=== PATIENT | female | born 1985 | race Caucasian/White ===

== ENCOUNTER 2018-11-04 08:43 | Day surgery (SDC) | payer BC ==
[~2018-11-04] VITALS: Ht 162.6 cm; Wt 109.3 kg
[~2018-11-04 08:43] MED LIST: BUPR150T73 PO
[2018-11-04 09:12] VITALS: BP 143/97
[2018-11-04] MEDS ORDERED: LACTATED RINGERS 1,000 ML IV SCH (09:16)
[2018-11-04] MEDS ORDERED: MELATONIN PO (09:20)
[2018-11-04] MEDS ORDERED: GABAPENTIN 300 MG CAPSULE PO ONE (09:30)
[2018-11-04] MEDS ORDERED: ONDANSETRON ODT 8 MG PO ONE (09:30)
[2018-11-04] MEDS ORDERED: SCOPOLAMINE PATCH, 1.5MG PATCH.TD72 TD ONE (09:30)
[2018-11-04] MEDS ORDERED: ACETAMINOPHEN 500 MG TABLET PO ONE (09:30)
[2018-11-04] MEDS ORDERED: APREPITANT 40 MG CAPSULE PO ONE (09:30)
[2018-11-04] MEDS ORDERED: OxyconTIN ER 20 MG TAB.ER PO ONE (09:30)
[2018-11-04] MEDS ORDERED: MIDAZOLAM 1 MG/ML, 2ML ONE (09:34)
[2018-11-04] MEDS ORDERED: FENTANYL PF 250 MCG/5ML ONE (09:35)
[2018-11-04 09:44] LABS: HCG UR SG 1.014 (1.003-1.030)
[2018-11-04] MEDS ORDERED: BUPIVACAINE 0.25% ONE (10:28)
[2018-11-04] MEDS ORDERED: EPINEPHRINE 1 MG/ML, 1ML ONE (10:28)
[2018-11-04] MEDS ORDERED: PROPOFOL 50 ML ONE ×3 (10:54→12:35)
[2018-11-04] MEDS ORDERED: LABETALOL 5MG/ML, 20ML IV PRN (11:30)
[2018-11-04] MEDS ORDERED: HYDROmorphone 2 MG/ML, 1ML IVPush PRN (11:30)
[2018-11-04] MEDS ORDERED: ONDANSETRON 2MG/ML, 2ML IV PRN (11:30)
[2018-11-04] MEDS ORDERED: ALBUTEROL/IPRATROPIUM 2.5MG/0.5MG, 3 ML NPPB PRN (11:30)
[2018-11-04] MEDS ORDERED: MEPERIDINE/PF 25MG/0.5ML IVPush PRN (11:30)
[2018-11-04] MEDS ORDERED: PROMETHAZINE 25 MG/ML, 1ML IV PRN (11:30)
[2018-11-04] MEDS ORDERED: MIDAZOLAM 1 MG/ML, 2ML IV PRN (11:30)
[2018-11-04] MEDS ORDERED: BUPIVACAINE/PF 0.5% ONE (11:33)
[2018-11-04] MEDS ORDERED: KETOROLAC 30 MG/1 ML ONE (12:23)
[2018-11-04] MEDS ORDERED: CEFAZOLIN 1,000 MG ONE (13:23)
[2018-11-04] MEDS ORDERED: ONDANSETRON 2MG/ML, 2ML ONE (13:23)
[2018-11-04] MEDS ORDERED: PROPOFOL 10 MG/ML, 20ML ONE (13:23)
[2018-11-04] MEDS ORDERED: DEXAMETHASONE 4 MG/ML, 1ML ONE (13:23)
[2018-11-04] MEDS ORDERED: FENTANYL PF 100 MCG/2ML ONE (13:44)
[2018-11-04] MEDS: FENTANYL PF 100 MCG/2ML IV PRN ×2 (13:46→13:56)
[2018-11-04] MEDS ORDERED: OXYcodone 5 MG/5 ML ORAL.SOL UDC ONE (13:57)
[2018-11-04] MEDS: OXYcodone 5 MG/5 ML ORAL.SOL UDC PO PRN ×2 (13:59→15:43)
[2018-11-04] MEDS ORDERED: HYDROmorphone 2 MG/ML, 1ML ONE (14:08)
[2018-11-04] MEDS ORDERED: APAP/CODEINE 300/30MG TABLET PO PRN (16:00)
[2018-11-04] MEDS ORDERED: ONDANSETRON 2MG/ML, 2ML IVPush PRN (16:00)
[2018-11-04] MEDS ORDERED: PROMETHAZINE 25 MG/ML, 1ML IM PRN (16:00)
[2018-11-04] MEDS ORDERED: OXYcodone/APAP 5/325MG TABLET PO PRN (16:00)
[2018-11-04] MEDS ORDERED: KETOROLAC 30 MG/1 ML IVPush SCH (16:00)
[2018-11-04] MEDS ORDERED: morphine SULFATE 10 MG/ML, 1ML IVPush PRN (16:00)
== END 2018-11-04 19:02 | disposition home or self-care (01) ==
LOC: OUT 08:43
PROVIDERS: ATTEND Orthopaedic Surgery
DX: M23.52 Chronic instability of knee, left knee (principal); M22.42 Chondromalacia patellae, left knee; E66.01 Morbid (severe) obesity due to excess calories; Z68.41 Body mass index [BMI] 40.0-44.9, adult; Z88.1 Allergy status to other antibiotic agents; Z88.8 Allergy status to other drugs, medicaments and biological substances
CPT/HCPCS: 27420; 29877; 64447; 73560; 76000; 81025; C1713; J0171; J0690; J1100; J1170; J1885; J2250; J2270; J2405; J2550; J2704; J3010; J3490; J7120; J8501; Q0162

== ENCOUNTER 2019-09-13 16:12 | Emergency (ER) | payer BC, OTHER ==
[~2019-09-13] VITALS: Ht 162.6 cm; Wt 106.2 kg
[~2019-09-13 16:12] MED LIST changes: +MELATONIN PO; +TRAM50TA2 PO
[2019-09-13 16:16] VITALS: BP 156/104
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
[2019-09-13] MEDS ORDERED: KETOROLAC 30 MG/1 ML IM ONE (17:00)
[2019-09-13] MEDS ORDERED: KETOROLAC 30 MG/1 ML ONE (17:06)
--- NOTE | 2019-09-13 17:38 | NUR ---
YVONNE HARMON AT BEDSIDE FOR RECHECK, DISCUSSING DISCHARGE POC. AWAITING CHART AND DISCHARGE PAPERS
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
== END 2019-09-13 18:00 ==
LOC: ED 17:54
DX: S16.1XXA Strain of muscle, fascia and tendon at neck level, initial encounter (principal); I10 Essential (primary) hypertension; V40.5XXA Car driver injured in collision with pedestrian or animal in traffic accident, initial encounter; Y93.89 Activity, other specified; Y92.89 Other specified places as the place of occurrence of the external cause; Y99.8 Other external cause status
CPT/HCPCS: 72125; 96372; 99284; J1885